=== PATIENT | male | born 1955 | race Caucasian/White ===

== ENCOUNTER 2019-03-31 06:15 | Outpatient (CLI) | payer OTHER ==
[~2019-03-31] VITALS: Ht 180.3 cm; Wt 111.4 kg
--- NOTE | ~2019-03-31 | HEMODYNAMI ---
PATIENT:KEVIN VELAZQUEZ MEDICAL RECORD: [id number] : 55 LOCATION:[facility] ADMISSION DATE: 03/31/19 Generatedon:03/31/20199:04 Patient name: KEVIN VELAZQUEZ Patient #: [id number] SSN: D OB: 1955 Date of study: 03/31/2019 Page: Of Hemodynamic Procedure Report Patient Data Patient Demographics Procedure consent was obtained First Name: KEVIN Gender: Male Last Name: MARCUS : 1955 Patient #: [id number] Age: 64 year(s) Race: Unknown Additional ID: [id number] Contact details [address]: [address] [place] [address] State: [place] City: [place] Zip code: [address] Past Medical History Allergies: No known allergies Admission Admission Data Admission Date: 03/31/2019 Admission Time: 6:15 Lab Results Lab Result Date: 03/31/2019 Lab Result Time: 0:00 Biochemistry Name Units Result Min Max BUN mg/dl 19 --(----)*- 7 18 Creatinine mg/dl 1.3 --(---*)-- 0.6 1.3 CBC Name Units Result Min Max Hemoglobin g/dl 15.6 --(--*-)-- 13.5 17.5 Procedure Procedure Types Cath Procedure Diagnostic Procedure [facility] w/Coron[facility] Procedure Description Procedure Date Procedure Date: 03/31/2019 Procedure Start Time: 8:44 Procedure End Time: 9:03 Procedure Staff Name Function Quinton Rodriguez MD Performing Physician Roma Royal RT Scrub Abby Chilel RN Nurse Toñito Cuadra RT Monitor Procedure Data Cath Procedure Fluoroscopy Diagnostic fluoroscopy Total fluoroscopy Time: 5 time: 5 min min Diagnostic fluoroscopy Total fluoroscopy dose: dose: 1416 mGy 1416 mGy Contrast Material Contrast Material Type Amount (ml) Isovue 300 63 Entry Location Entry Primary Successful Side Size Upsize Upsize Entry Closure Neves ccessful Closure Location (Fr) 1 (Fr) 2 (Fr) Remarks Device Remarks Radial Right 6 Fr Mechanical artery Short Compression Estimated blood loss: 10 ml Diagnostic catheters Device Type Used For End Catheter Placement DIAGNOSTIC Mane 110cm Procedure 5Fr catheter ([id number]) DIAGNOSTIC AR2 MOD 5 Fr Procedure catheter ([id number]) DIAGNOSTIC AL1 5Fr Procedure catheter ([id number]) Procedure Medications Medication Administration Route Dosage 0.9% NaCl I.V. 100 ml/hr Oxygen etCO2 Nasal cannula 2 l/min Lidocaine 2% added to field 20 Heparin Flush Bag added to field 2 bags (1000units/500ml NS) Radial Cocktail added to field 1 syringe (Verapamil 2mg/Nitro 400mcg/Heparin 1500units) Versed I.V. 2 mg Fentanyl I.V. 50 mcg Versed I.V. 1 mg Fentanyl I.V. 50 mcg Hemodynamics Rest HGB: 15.6 (g/dl) Heart Rate: 62 (bpm) Pressure Samples Time Site Value (mmHg) Purpose Heart Use Rate(bpm) 8:47 LV 94/-2,5 Snapshot 89 8:47 LV 90/13,15 EDP 78 8:48 AO 97/60(75) Snapshot 76 Gradients Valve Time Site Site Mean SEP/DFP Peak To Heart Use 1 2 (mmHg) (sec/min) Peak Rate (mmHg) (bpm) Aortic 8:48 LV AO 81 Snapshots Pre Cath Intra NCS Post Cath Vital Signs Time Heart Resp SPO2 etCO2 NIBP (mmHg) Rhythm Pain Sedation Rate (ipm) (%) (mmHg) Status Level (bpm) 8:23:37 64 14 98 34 149/85(112) NSR 0 (11) 10(A) , No pain 8:28:02 61 14 98 33.5 152/79(115) NSR 0 (11) 10(A) , No pain 8:32:20 66 15 97 40.2 130/82(96) NSR 0 (11) 10(A) , No pain 8:36:36 64 19 98 37.2 129/83(100) NSR 0 (11) 10(A) , No pain 8:40:54 62 15 97 39.5 135/75(108) NSR 0 (11) 10(A) , No pain 8:45:14 63 14 97 41 143/74(98) NSR 0 (11) 10(A) , No pain 8:49:34 71 12 93 26.1 116/67(92) NSR 0 (11) 9(A) , No pain 8:53:50 71 14 96 31.4 119/66(89) NSR 0 (11) 9(A) , No pain 8:58:06 70 18 96 39.5 118/75(91) NSR 0 (11) 10(A) , No pain 9:02:22 67 18 96 34.3 130/72(113) NSR 0 (11) 10(A) , No pain Medications Time Medication Route Dose Verified Delivered Reason Notes Ef fectiveness by by 8:23:37 0.9% NaCl I.V. 100 Quinton Abby used for ml/hr Michael Chilel college athletic director 8:23:43 Oxygen etCO2 2 l/min Quinton Abby used for Nasal Michael Chilel procedure cannula RN 8:23:47 Lidocaine 2% added 20ml Quinton Quinton for local to vial Michael Rodriguez MD anesthetic field 8:23:51 Heparin Flush added 2 bags Quinton Quinton used for Bag to Michael Rodriguez MD procedure (1000units/500ml field NS) 8:23:59 Radial Cocktail added 1 Quinton Quinton used for (Verapamil to syringe Michael Rodriguez MD procedure 2mg/Nitro field 400mcg/Heparin 1500units) 8:39:04 Versed I.V. 2 mg Quinton Abby for Michael Chilel sedation RN 8:39:14 Fentanyl I.V. 50 mcg Quinton Abby for Michael Chilel sedation RN 8:46:09 Versed I.V. 1 mg Quinton Abby for Michael Chilel sedation RN 8:46:14 Fentanyl I.V. 50 mcg Quinton Abby for Michael Chilel sedation dispute coordinator Log Time Note 7:44:47 Diagnostic Cath Status : Elective 7:45:11 Abby Chilel RN sent for patient. Start room use. 7:45:12 Time tracking: Regular hours (M-F 7:00 - 5:00) 7:45:16 Plan of Care:Hemodynamics will remain stable., Cardiac rhythm will remain stable., Comfort level will be maintained., Respiratory function will remain adequate., Patient/ family verbilizes understanding of procedure., Procedure tolerated without complication., Recovers from procedure without complications.. 8:16:19 Patient received from Pre/Post Procedure Room to CCL 2 Alert and oriented. Tansferred to table in Supine position. 8:16:21 Warm blankets applied, and jennie hugger turned on for patient comfort. 8:16:22 Correct patient and procedure confirmed by team. 8:16:25 Signed procedure consent form obtained from patient. 8:16:26 ECG and BP/O2 sat monitors applied to patient. 8:21:36 Baseline sample Acquired. 8:21:52 Rhythm: sinus rhythm 8:22:09 Vital chart was started 8:22:14 Full Disclosure recording started 8:22:54 H&P Date Dictated: 03/09/2019 Within 30 days and on chart., H&P Addendum completed by physician on day of procedure. (MUST COMPLETE FOR ALL OUTPATIENTS). 8:22:57 Pre-procedure instructions explained to patient. 8:22:57 Pre-op teaching completed and patient verbalized understanding. 8:23:00 Family in patients room. 8:23:03 Patient NPO since Midnight. 8:23:11 Is the patient allergic to Iodine/contrast media? No. 8:23:27 Patient allergic to No known allergies 8:23:37 0.9% NaCl 100 ml/hr I.V. was administered by Abby Chilel RN; used for procedure; 8:23:38 Is patient on blood thinner?No 8:23:41 Patient diabetic? Yes. 8:23:43 Oxygen 2 l/min etCO2 Nasal cannula was administered by Abby Chilel RN; used for procedure; 8:23:43 If diabetic: On Metformin? Yes 8:23:47 Lidocaine 2% 20ml vial added to field was administered by Quinton Rodriguez MD; for local anesthetic; 8:23:50 If on Metformin: Last Dose? 03/29/2019 8:23:51 Heparin Flush Bag (1000units/500ml NS) 2 bags added to field was administered by Quinton Rodriguez MD; used for procedure; 8:23:59 Radial Cocktail (Verapamil 2mg/Nitro 400mcg/Heparin 1500units) 1 syringe added to field was administered by Quinton Rodriguez MD; used for procedure; 8:23:59 ----Pre-sedation anethsthesia assessment.---- 8:24:03 Previous problem with sedation/anesthesia? No ? 8:24:05 Snore? Yes 8:24:07 Sleep apnea? No 8:24:09 Deviated septum? No 8:24:11 Opens mouth fully? Yes 8:24:13 Sticks out tongue? Yes 8:24:16 Airway obstruction? No ? 8:24:42 Pre procedure: right posterior tibial pulse 2+ Normal; easily identifiable; not easily obliterated 8:24:49 Modified Leobardo's test Ulnar < 7 seconds 8:24:54 Patient pain scale 0/10 ?. 8:25:16 IV patent on arrival in right forearm with 0.9% NaCl at 100ml/hr. 8:28:35 Lab Result : BUN 19 mg/dl 8::35 Lab Result : Hemoglobin 15.6 g/dl 8::35 Lab Result : Creatinine 1.3 mg/dl 8:28:39 Lab results completed and on chart. 8:28:43 Right Radial & Right Groin area was prepped with chlora-prep and draped in sterile fashion 8:28:45 Alarms reviewed by R. N. 8:28:46 Sharps counted by scrub and verified by R.N. 8:28:50 Use device set Radial Dx or PCI 8:28:52 ACIST Syringe (42499) opened to sterile field. 8:28:52 Medline Cath Pack ([id number]) opened to sterile field. 8:28:53 Bag Decanter (2002S) opened to sterile field. 8:28:54 DIAGNOSTIC WIRE .035 260cm J wire (799137) opened to sterile field. 8:28:55 ACIST Hand Control (79493) opened to sterile field. 8:28:55 ACIST Manifold (06229) opened to sterile field. 8:28:56 Tegaderm 4 x 4 (1626W) opened to sterile field. 8:28:56 MBrace Wrist Support ([id number]) opened to sterile field. 8:28:59 NEEDLE Cook 21G 4cm Radial (Y45740) opened to sterile field. 8:29:01 SHEATH 6FR Slender (70-8596) opened to sterile field. 8:38:16 Physician arrived 8:38:16 --------ALL STOP TIME OUT------ 8:38:17 Final Timeout: patient, procedure, and site verified with staff and physician. All members of the team are in agreement. 8:38:19 Right Radial & Right Groin site verified by team. 8:38:24 Maximum allowable Isovue 300 dose 300ml. Physician notified. (300ml for normal creatinines. For patients with creatinine of 1.7 or higher multiply weight(kg) x 5 divided by creatinine.) 8:38:29 Fire Safety Assessment: A--An alcohol-based skin anteseptic being used preoperatively., C--Open oxygen or nitrous oxide is being used., D--An ESU, laser, or fiber-optic light is being used. 8:38:33 Physical assessment completed. ASA score P 2 - A patient with mild systemic disease as per Quinton Rodriguez MD. 8:38:38 Sedation plan: IV Moderate Sedation Medication:Versed, Fentanyl 8:39:04 Versed 2 mg I.V. was administered by Abby Chilel RN; for sedation; 8:39:14 Fentanyl 50 mcg I.V. was administered by Abby Chilel RN; for sedation; 8:43:55 Procedure started. 8:44:00 Local anesthetic to right radial artery with Lidocaine 2% by Quinton Rodriguez MD.INITIAL ACCESS ONLY 8:45:11 A 6 Fr Short sheath was inserted into the Right Radial artery 8:46:00 A DIAGNOSTIC Mane 110cm 5Fr catheter ([id number]) was advanced over the wire and used for Procedure. 8:46:09 Versed 1 mg I.V. was administered by Abby Chilel RN; for sedation; 8:46:14 Fentanyl 50 mcg I.V. was administered by Abby Chilel RN; for sedation; 8:47:39 LV hemodynamics recorded. 8:47:41 LV gram done using FISHER 8:47:46 EF : 60 % 8:48:38 LCA angiography performed. 8:51:19 RCA angiography performed. 8:51:38 RCA OCCLUDED AT THE OSTIUM 8:52:43 Catheter removed. 8:53:07 A DIAGNOSTIC AR2 MOD 5 Fr catheter ([id number]) was advanced over the wire and used for Procedure. 8:54:56 Catheter removed. 8:56:05 A DIAGNOSTIC AL1 5Fr catheter (180123P) was advanced over the wire and used for Procedure. 8:58:08 Catheter removed. 8:58:16 TR BAND Large ([id number]) opened to sterile field. 8:58:50 Procedure ended.(Physican Out) 8:59:04 Sheath removed intact; hemostasis achieved with Mechanical Compression to the Right Radial artery. 8:59:18 Fluoroscopy time 05.00 minutes. 8:59:31 Fluoroscopy dose: 1416 mGy 8:59:31 Flurop Dose total: 1416 9:00:15 Contrast amount:Isovue 300 63ml. 9:00:31 Sharps counted by scrub and verified by R.N. 9:01:45 TR band inflated with 10cc of air. 9:01:47 Insertion/operative site no bleeding no hematoma. 9:01:57 Post right radial artery:stable 9:02:38 Post Procedure Pulses reassessed and unchanged 9:02:43 Post-procedure physical assessment completed. ASA score P 2 - A patient with mild systemic disease as per Quinton Rodriguez MD. 9:02:46 Post procedure rhythm: sinus rhythm 9:02:50 Estimated blood loss: 10 ml 9:02:53 Patient needs reinforcement of post procedure teaching. 9:03:04 Procedure and supply charges have been captured, reviewed, submitted and are correct. 9:03:24 Vital chart was stopped 9:03:24 See physician's report for complete and final results. 9:03:27 Report given to Pre/Post Procedure Room. 9:03:30 Patient transfered to Pre/Post Procedure Room with Stretcher. 9:03:33 Procedure ended. 9:03:33 Full Disclosure recording stopped 9:03:37 End room use (Document Last) Device Usage Item Name Manufacture Quantity Catalog Hospital Part Current Minimal Lot# / Number Charge Number Stock Stock Serial# Code ACIST Acist 1 54013 845478 458895 212194 20 Syringe Medical (06023) Systems Inc Medline Medline 1 [id number] 511183 99938 702992 5 Cath Pack ([id number]) Bag Microtek 1 844963 92676 284847 5 Decanter Medical Inc. () DIAGNOSTIC St Raffi 1 779081 682249 534972 435308 30 WIRE .035 260cm J wire (476356) ACIST Hand Acist 1 22474 139363 011106 046031 5 Control Medical (97138) Systems Inc ACIST Acist 1 68330 963494 350794 608660 5 [facility] Medical (85334) Systems Inc Tegaderm 4 3M 1 1626W 196126 698042 600849 5 x 4 (1626W) MBrace Advanced 1 140-0250-00 621243 04872 382212 5 Wrist Vascular Support Dynamics ([id number]) NEEDLE Agilvax Medical 1 G79810 877516 796708 890196 5 21G 4cm Radial (V13369) SHEATH 6FR Terumo 1 [id number] 323216 216436 448443 5 Slender (801060) DIAGNOSTIC Terumo 1 40-8433 735496 776149 146428 5 Mane 110cm 5Fr catheter (525007) DIAGNOSTIC Cardinal 1 [id number] 401234 442101 398516 20 AR2 MOD 5 Health Fr catheter (629085N) DIAGNOSTIC Cardinal 1 [id number] 029136 783884 200104 15 AL1 5Fr Health catheter (583772T) TR BAND Terumo 1 [id number] 692274 810007 376892 40 Large ([id number]) Signature Audit Lanse Stage Time Signature Unsigned Intra-Procedure 03/31/2019 Toñito Cuadra 9:03:53 AM RT(R) (CV) Signatures Monitor : Toñito Cuadra RT Signature : Date : Time : [address] [place] [address]
[2019-03-31] MEDS ORDERED: LISINOPRIL20 MG PO (06:38)
[2019-03-31] MEDS ORDERED: ISOSORBIDE MONO30 M1 PO (06:38)
[2019-03-31] MEDS ORDERED: LEVOTHYROXINE150 MCG PO (06:38)
[2019-03-31] MEDS ORDERED: GLUCOPHAGE500 MG PO (06:39)
[2019-03-31 06:55] VITALS: BP 142/72; Ht 180.3 cm; Wt 111.4 kg
[2019-03-31 07:17] LABS: BASOPHILS 0.6 % (0-2); EOSINOPHILS 3.9 % (0-7); HEMATOCRIT 44.7 % (42.0-54.0); HEMOGLOBIN 15.6 g/dL (13.5-17.5); IMMATURE GRANULOCYTES 0.5 % (0-5); LYMPHOCYTES 27.8 % (15-50); MCHC 34.9 g/dL (31.0-37.0); MCV 88.9 fL (80.0-100.0); MEAN PLATELET VOLUME 11.6 fL (7.4-10.4); MONOCYTES 10.3 % (2-11); NEUTROPHILS 56.9 % (40-80); PLATELET COUNT 116 10x3/uL (130-400); RBC 5.03 10x6/uL (4.20-6.10); RDW 13.5 % (11.5-14.5); WBC 6.2 10x3/uL (4.8-10.8)
[2019-03-31 07:20] LABS: ANION GAP 12.7 mmol/L (8-16); CALCIUM 9.3 mg/dL (8.5-10.1); CARBON DIOXIDE 25.3 mmol/L (21.0-32.0); CREATININE - SERUM 1.3 mg/dL (0.6-1.3)
--- NOTE | 2019-03-31 09:10 | NUR ---
PT RECEIVED VIA STRETCHER FROM REVOLVING FI[employer] ASSEMBLER FOR RECOVERY. PT SLEEPING BUT VERBALLY AROUSABLE. TR BAND AND IMMOBILIZER IN PLACE, DRESSING CDI NO BLEEDING OR SWELLING NOTED. HR NSR RATE 62, BP 156/69, O2 SAT 97 ON 2L/NC. IV INFUSING VIA ORDERS. DR SANCHEZ AT BEDSIDE TALKING WITH S/O REGARDING PLAN OF CARE AND PROCEDURE RESULTS. PT INSTRUCTED TO KEEP R ARM STILL AND NO PULLING OR PUSHING WITH IT, HE VERBALIZED UNDERSTANDING.
--- NOTE | 2019-03-31 09:32 | NUR ---
PT MORE AWAKE, DENIES PAIN OR DISCOMFORT. TR BAND IN PLACE, DRESSING REMAINS CDI NO BLEEDING OR SWELLING NOTED. HOB ELEVATED PER REQUEST, WATER GIVEN. VSS. CALL LIGHT IN REACH.
--- NOTE | 2019-03-31 09:45 | NUR ---
PT RESTING COMFORTABLY, TR BAND IN PLACE, NO BLEEDING OR SWELLING NOTED. EXTREMITY WARM AND PINK, CAP REFILL BRISK. SANDWICH SERVED. VSS, PT DENIES ANY OTHER NEEDS. CALL LIGHT IN REACH, S/O AT BEDSIDE.
--- NOTE | 2019-03-31 10:30 | NUR ---
DR. HAMILTON'S NURSE AT BEDSIDE TALKING W PT REGARDING SCHEDULING FOR FOLLOW UP APPOINTMENT FOR POTENTIAL CABG.
--- NOTE | 2019-03-31 10:40 | NUR ---
4 ADD'L CC AIR REMOVED FROM TR BAND. NO BLEEDING OR HEMATOMA NOTED, CAP REFILL REMAINS BRISK. VSS. PT DENIES DISCOMFORT OR NEEDS AT THIS TIME
--- NOTE | 2019-03-31 10:56 | NUR ---
DISCHARGE INSTRUCTIONS REVIEWED W PT AND S/O BOTH VERBALIZED UNDERSTANDING. IV REMOVED W CATH INTACT, MONITORS REMOVED. PT UP TO DRESS FOR DISCHARGE.
--- NOTE | 2019-03-31 11:04 | NUR ---
TR BAND AND REMAINING AIR REMOVED, NO BLEEDING OR SWELLING NOTED. 2X2 AND TEGADERM DRESSING APPLIED. IMMOBILIZER REMAINS ON. PT WAITING ON DR. HAMILTON TO SEE HIM BEFORE DISCHARGE.
--- NOTE | 2019-03-31 11:20 | NUR ---
DR HAMILTON AT BEDSIDE DISCUSSING PLAN OF CARE. PT DISCHARGED FROM US BUT WAITING ON PRE ASSESSMENT TESTS TO BE DONE IN PREPARATION FOR CABG SCHEDULED 04/04/19.
== END 2019-03-31 11:20 | disposition other institution, planned readmission (95) ==
LOC: D.CATH 06:15
PROVIDERS: ATTEND Internal Medicine Cardiovascular Disease
DX: I25.110 Atherosclerotic heart disease of native coronary artery with unstable angina pectoris (principal); Z01.812 Encounter for preprocedural laboratory examination

== ENCOUNTER 2019-03-31 12:37 | Inpatient (IN) | payer OTHER ==
[~2019-03-31 12:37] MED LIST: GLUCOPHAGE500 MG PO; ISOSORBIDE MONO30 M1 PO; LEVOTHYROXINE150 MCG PO; LISINOPRIL20 MG PO
[2019-03-31 17:22] LABS: BASOPHILS 0.5 % (0-2); HEMATOCRIT 43.4 % (42.0-54.0); HEMOGLOBIN 14.9 g/dL (13.5-17.5); IMMATURE GRANULOCYTES 0.3 % (0-5); LYMPHOCYTES 26.8 % (15-50); MCH 30.9 pg (26.0-34.0); MCHC 34.3 g/dL (31.0-37.0); MEAN PLATELET VOLUME 11.3 fL (7.4-10.4); MONOCYTES 9.9 % (2-11); NEUTROPHILS 58.5 % (40-80); PLATELET COUNT 109 10x3/uL (130-400); RBC 4.82 10x6/uL (4.20-6.10); RDW 13.4 % (11.5-14.5); WBC 5.8 10x3/uL (4.8-10.8)
[2019-03-31 17:45] LABS: APTT 27.5 SECONDS (22.8-39.4); INR 1.08 (0.85-1.17); PROTIME 13.5 SECONDS (11.6-15.0)
[2019-03-31 17:52] LABS: APPEARANCE CLEAR (CLEAR); COLOR YELLOW (YELLOW); SPECIFIC GRAVITY 1.015 (1.005-1.020)
[2019-03-31 17:53] LABS: BILIRUBIN NEGATIVE (NEGATIVE); GLUCOSE NEGATIVE (NEGATIVE); KETONE NEGATIVE (NEGATIVE); NITRITE NEGATIVE (NEGATIVE); PROTEIN NEGATIVE (NEGATIVE); UROBILINOGEN NORMAL (NORMAL)
[2019-03-31 17:54] LABS: ALBUMIN 3.5 g/dL (3.4-5.0); ANION GAP 12.7 mmol/L (8-16); BILIRUBIN - TOTAL 0.45 mg/dL (0.2-1.3); CALCIUM 8.6 mg/dL (8.5-10.1); CARBON DIOXIDE 26.2 mmol/L (21.0-32.0); CREATININE - SERUM 1.2 mg/dL (0.6-1.3); PHOSPHOROUS 3.7 mg/dL (2.5-4.9); POTASSIUM - SERUM 3.9 mmol/L (3.5-5.1); PROTEIN - SERUM 7.1 g/dL (6.4-8.2); T4 THYROXIN - FREE 1.18 ng/dL (0.76-1.46); THYROID STIMULATING HORMONE 0.44 uIU/mL (0.36-3.74); URIC ACID 9.1 mg/dL (2.6-7.2)
[2019-04-04] VITALS (36 sets, daily range): BP systolic 91–136; BP diastolic 51–69; BMI 33.2; BMI 34.2
[2019-04-04] MEDS ORDERED: BAYER CHEWABLE81 MG PO (05:53)
[2019-04-04] MEDS ORDERED: ACETAMINOPHEN500 M1 PO (05:54)
--- NOTE | 2019-04-04 16:00 | NUR ---
PT ARRIVED TO UNIT AROUND 1538. PLACE ON VENT A/C, TV650, FIO2 60%, PEEP 5. ETT SIZE 8 24 AT THE LIP. MIDSTERNAL DRESSING NOTED. SUBTERNAL CT X 2 TO 20CM SUCTION, NOT AIR LEAK NOTED. L CHARITY DRAIN NOTED. DRESSING NOTED ON LEFT ARM. RLE HARVEST SITES WITH COBAN DRESSSING IN PLACE FROM GROIN TO ANKLE. CRITICORE RINALDI CATHETER IN PLACE WITH CLEAR YELLOW URINE NOTED. WRIST RESTRAINTS APPLIED UPON ARRIVAL PER ORDERS. R-RADIAL ELIDA IN PLACE SECURED WITH WRIST PROTECTOR. PT OPENS EYES TO VOICE. COMPLETE ASSESSMENT CHARTED IN FLOWSHEET. SAFETY MEASURES IN PLACE. WILL CONTINUE TO MONITOR.
--- NOTE | 2019-04-04 19:05 | NUR ---
ABG'S REPORTED TO DR. HAMILTON. ORDERED TO GIVE 1 AMP OF BICARB. WANTS TO REPEAT ABG'S IN 30MIN BEFORE EXTUBATING.
--- NOTE | 2019-04-04 19:54 | NUR ---
ABG'S REPORTED TO , ORDERS RECEIVED TO EXTUBATE, RT AT BEDSIDE, VSS, WILL CONTINUE TO MONITOR
--- NOTE | 2019-04-04 19:55 | NUR ---
PT EXTUBATED BY RT ORALIA, PT VSS, NO ACUTE DISTRESS NOTED CALM/COOPERATIVE AT THIS TIME, PLACED ON NC @4L/MIN
--- NOTE | 2019-04-04 20:15 | NUR ---
SPOUSE AT BEDSIDE, UPDATE GIVEN, PT VSS, PT C/O PAIN MED GIVEN PER MAR/ORDERS, WILL CONTINUE TO MONITOR
--- NOTE | 2019-04-04 21:30 | NUR ---
PT C/O INCISIONAL PAIN AT REST AND WITH COUGHING, PRN MED GIVEN SEE DEC, VSS
--- NOTE | 2019-04-04 23:00 | NUR ---
REASSESSMENT COMPLETE PER FLOW SHEET, NO ACUTE CHANGES NOTED, PT AAOx4, VSS. REPOSITIONED IN BED
[2019-04-05] VITALS (37 sets, daily range): BP systolic 104–138; BP diastolic 56–81; BMI 35.2
--- NOTE | 2019-04-05 01:30 | NUR ---
DANGLED PT ON BEDSIDE, PT TOLLERATED REPOSITIONING WELL, MINIMAL CT OUTPUT, VSS, REPOSITIONED FOR COMFORT IN BED, CUP H2O GIVEN PER REQUEST, WILL CONTINUE TO MONITOR
--- NOTE | 2019-04-05 03:00 | NUR ---
REASSESSMENT COMPLETE SEE FLOW SHEET, VSS, CUP H2O PER REQUEST
[2019-04-05 06:06] LABS: HEMATOCRIT 40.6 % (42.0-54.0); HEMOGLOBIN 13.9 g/dL (13.5-17.5); MCH 30.7 pg (26.0-34.0); MCHC 34.2 g/dL (31.0-37.0); MCV 89.6 fL (80.0-100.0); MEAN PLATELET VOLUME 11.1 fL (7.4-10.4); RBC 4.53 10x6/uL (4.20-6.10); RDW 13.9 % (11.5-14.5); WBC 15.2 10x3/uL (4.8-10.8)
[2019-04-05 06:28] LABS: ANION GAP 13.3 mmol/L (8-16); BILIRUBIN - TOTAL 0.54 mg/dL (0.2-1.3); CALCIUM 7.4 mg/dL (8.5-10.1); CARBON DIOXIDE 25.3 mmol/L (21.0-32.0); CREATININE - SERUM 1.6 mg/dL (0.6-1.3); POTASSIUM - SERUM 4.6 mmol/L (3.5-5.1); PROTEIN - SERUM 5.7 g/dL (6.4-8.2)
--- NOTE | 2019-04-05 06:30 | NUR ---
PT UP TO CHAIR, PT HAS INCRTEASED GENERALIZED/INCISIONAL PAIN, PAIN MED GIVEN SEE MAR, VSS WILL CONTINUE TO MONITOR
--- NOTE | 2019-04-05 07:55 | NUR ---
DR HAMILTON BY TO SEE PATIENT. PT C/O PAIN, DR HAMILTON ACKNOWLEDGE COMPLAINT AND DISCUSSED WITH PT THIS TYPE OF SURGERY WOULD CAUSE PAIN. HAVE MEDICATIONS TO HELP, WILL ALSO BE REMOVING CHEST TUBES LATER TODAY AND THAT SHOULD HELP ALEVIATE SOME OF THE PAIN. PT VOICED NO OTHER COMPLAINTS.
--- NOTE | 2019-04-05 08:02 | OP ---
PATIENT NAME: KEVIN VELAZQUEZ MEDICAL RECORD: [id number] :55 LOCATION:D.CVI D.CV06 ADMISSION DATE:04/04/19 SURGEON: HOOD HAMILTON MD DATE OF OPERATION: 04/04/2019 SURGEON: Hood Hamilton MD FINANCIAL DEALERS: Aftab Oconnor OPERATION PERFORMED: Coronary artery bypass graft times 4 (left internal mammary LAD, radial artery from aorta to obtuse marginal, reverse saphenous vein graft from aorta to first diagonal, aorta to posterior descending artery) left radial artery harvest. Endoscopic saphenous vein harvest. PREOPERATIVE DIAGNOSES: Coronary artery disease with percutaneous coronary intervention. POSTOPERATIVE DIAGNOSES: Coronary artery disease with percutaneous coronary intervention. ANESTHESIA: General endotracheal anesthesia. ESTIMATED BLOOD LOSS: Total cardiopulmonary bypass with Cell Saver retransfusion. COMPLICATIONS: None. SPECIMENS: None. CONDITION: Stable. DISPOSITION: CV ICU. OPERATIVE FINDINGS: 1. Transesophageal echocardiography revealed 60% ejection fraction with trace mitral regurgitation, no change after separation from cardiopulmonary bypass. 2. Good quality left radial artery harvested in open fashion after Leobardo test performed on the left. 3. Good quality greater saphenous vein harvested endoscopically right lower extremity. 4. Large fatty heart. 5. Good quality left internal mammary artery to the LAD and all vessels had severe disease. There was anastomosis at the softest area of the LAD 1.5 mm. 6. The obtuse marginal was a bifurcating 1.5 mm vessel with severe disease. 7. First diagonal was intramyocardial 2.0 mm vessel. 8. Posterior descending artery 1.5 mm severe disease. 9. Sternal plate closure due to obesity, diabetes, and physical labor. PROCEDURE INDICATION: Crescendo unstable angina symptoms and multivessel coronary disease with previous coronary stenting. PROCEDURE IN DETAIL: The patient was brought to the operative suite. General anesthesia was obtained, the patient was prepped and draped, the greater saphenous vein harvested endoscopically. The right lower extremity by electrocautery. Vessels ligated proximally and distally removed. Side branches OPERATIVE REPORT [id number] KEVIN VELAZQUEZ were tied and sites were oversewn. Later, the leg was closed in 2 layers. Simultaneously, left radial artery was harvested with an open incision from the mid forearm to the wrist. Side branches were divided with clips. Vessel ligated proximally and distally and removed. It was cannulated perfused with papaverine solution. The arm was made hemostatic and closed in 2 layers. It was wrapped after Dermabond was placed and later wrapped again. Median sternotomy incision was made. Subcutaneous tissue was divided by electrocautery. The sternum was divided with a saw. The left hemisternum was elevated. Left pleural cavity was entered. Left internal mammary was taken as a pedicle graft. Sternal retractor was placed. Pericardium was opened. Heparin was given. Aortic was cannulated. Dual stage venous cannula was inserted. Internal mammary clipped distally and made ready for anastomosis. Activated clotting time was appropriately elevated. The patient was cardiopulmonary bypass. Sites for distal anastomoses were selected. Retrograde cardioplegia cannula was inserted. Antegrade cardioplegic cannula was inserted. The patient was cooled. Crossclamp was placed. Cardioplegia given antegrade and retrograde and antegrade cardioplegia was repeated at 15-minute intervals including down the completed vein grafts. Distal anastomoses were performed in standard technique and proximal anastomoses with single cross-clamp technique. The patient fully rewarmed cross clamp removed. Proximal and distal anastomotic sites were inspected for bleeding, resumed spontaneous rhythm, weaned from cardiopulmonary bypass and decannulated. Aortic annulus was oversewn with a non-pledgeted Prolene suture. Protamine was given. Thorough irrigation was undertaken. Hemostasis was ensured. The graft lay appropriately. Drains were placed in the mediastinum and left pleural cavity. Ventricular pacing wires were placed. Pericardial fat was loosely reapproximated. Left chest was evacuated and irrigated. The internal mammary harvest site was inspected for bleeding. Sternum was closed with 3 wires and then a Beverley sternal plating system with 1 plate in the manubrium and 2 in the body of the sternum. The area was irrigated with antibiotic irrigation. The fascia was closed. Subcutaneous tissue was closed. Skin was closed. Dermabond was placed. The needle and sponge count reported to be correct. The patient was taken to ICU in stable condition. TRANSINT:[id number] Voice Confirmation ID: [id number] DOCUMENT ID: [id number] HOOD HAMILTON MD at 0802 CC: MIKE SANCHEZ M.D. and JAKUB PALACIOS MD [id number] DICTATION DATE: 04/04/19 160 METER READING CLERK: 04/04/192014 ADM IN [facility] [address] [place] [address]
--- NOTE | 2019-04-05 09:31 | NUR ---
PT RESTING QUIETLY IN CHAIR AT BEDSIDE. NO DISTRESS NOTED. VSS. CALL LIGHT IN REACH.
--- NOTE | 2019-04-05 13:17 | NUR ---
1300 RECEIVED PT UP IN CHAIR. DENIES ANY NEEDS.
--- NOTE | 2019-04-05 15:07 | NUR ---
1430 DR HAMILTON IN ROOM D/C'D CHEST TUBES. SUBSTERNAL DRESSING CHANGED. ORDERS TO D/C A LINE D/C'D PER PROTOCOL, TIP INTACT. PER DR HAMILTON, DRESSING REMOVED FROM LUE AND RLE. 1500 VERBAL ORDER FOR 2.5 IV LOPRESSOR.
--- NOTE | 2019-04-05 17:17 | NUR ---
NOTIFIED DR HAMILTON OF PRN NORCO BEING UNAFFECTIVE. ORDERS FOR PRN PERCOCET AND ONE TIME DOSE OF TORODOL.
--- NOTE | 2019-04-05 18:26 | NUR ---
REFUSED BATH THIS SHIFT, STATED HE HAD ONE THIS AM.
--- NOTE | 2019-04-05 19:36 | NUR ---
BEDSIDE SHIFT REPORT GIVEN BY DEPARTING RN. PT OOB IN CHAIR. AAOX4. PERRLA. C/O INCISIONAL PAIN. WILL GIVE PRN PAIN MED WHEN AVAILABLE. O2 SAT 94% ON 2L NC. CHARITY DRAIN NOTED. RT LEG HARVEST SITE CONSTRUCTION DIRECTOR. LEFT ARM HARVEST SITE CONSTRUCTION DIRECTOR. NO SS OF INFECTION. VSS. ASSESSMENT COMPLETE. SAFETY MEASURES IN PLACE. CBIR.
--- NOTE | 2019-04-05 20:00 | NUR ---
FAMILY AT BEDSIDE
--- NOTE | 2019-04-05 21:15 | NUR ---
HS MEDS GIVEN WITHOUT DIFFICULTY. PRN PAIN MED GIVEN. SEE MAR FOR DETAILS.
--- NOTE | 2019-04-05 22:47 | NUR ---
BACK TO BED FROM CHAIR. STANDBY ASSIST. TOLERATED WELL. PRN PAIN MED EFFECTIVE.
[2019-04-06] VITALS (23 sets, daily range): BP systolic 98–125; BP diastolic 50–81
--- NOTE | 2019-04-06 02:54 | NUR ---
REASSESSMENT COMPLETE. NO NEW CHANGES NOTED IN PT CONDITION. VSS. DENIES ANY NEEDS AT THIS TIME. SAFETY MEASURES IN PLACE. CBIR.
[2019-04-06 06:42] LABS: HEMATOCRIT 35.8 % (42.0-54.0); HEMOGLOBIN 11.7 g/dL (13.5-17.5); MCH 29.9 pg (26.0-34.0); MCHC 32.7 g/dL (31.0-37.0); MEAN PLATELET VOLUME 11.3 fL (7.4-10.4); RBC 3.91 10x6/uL (4.20-6.10); RDW 14.1 % (11.5-14.5); WBC 15.1 10x3/uL (4.8-10.8)
[2019-04-06 06:46] LABS: ALBUMIN 2.7 g/dL (3.4-5.0); ANION GAP 9.2 mmol/L (8-16); BILIRUBIN - TOTAL 1.05 mg/dL (0.2-1.3); CALCIUM 7.7 mg/dL (8.5-10.1); CARBON DIOXIDE 29.1 mmol/L (21.0-32.0); CREATININE - SERUM 1.6 mg/dL (0.6-1.3); POTASSIUM - SERUM 4.3 mmol/L (3.5-5.1); PROTEIN - SERUM 5.8 g/dL (6.4-8.2)
[2019-04-06 06:48] LABS: MCV 91.6 fL (80.0-100.0)
--- NOTE | 2019-04-06 07:59 | NUR ---
0700 RECEIVED IN CHAIR. R IJ CENTRAL LINE CDI. MIDTSTERNAL DRESSING IN PLACE. SUBSTERNAL DRESSING WNL AND CHARITY DRAIN COMPRESSED. LUE AND RLE HARVEST SITE INCISION WNL. O2 2L VIA NC. RINALDI DRAINING YELLOW URINE.
--- NOTE | 2019-04-06 10:00 | TEE ---
PATIENT:KEVIN VELAZQUEZ MEDICAL RECORD: [id number] LOCATION:[place] [address] AGE OF PATIENT: 64 ADMISSION DATE: 04/04/19 SEX: M REFERRING PHYSICIAN: INTERPRETING PHYSICIAN: CAROLYN SMALL MD TRANSESOPHAGEAL ECHOCARDIOGRAM Date: 04/04/19 ROBYN CHARGE Y INDICATIONS: CABG PREMEDICATIONS: PATIENT'S RESPONSE PROCEDURE DOPPLER MEASUREMENTS: LVIT LA 3.9 PA RA LVOT RVOT Asc. Ao AV Gradient Peak AV Mean AV Area MV Gradient Peak MV Mean MV Area INTERPRETATION: Doppler: 2-D: COLOR FLOW DOPPLER NORMAL SALINE STUDY: MISCELLANOUS: DIAGNOSIS: PLAN: Stock Wetter:Blanca Rodriguez Professor Of Psychology: Blanca SILVA COMMENTS: JOY PATIENT DATE OF SERVICE: 04/04/2019 PROCEDURE: Transesophageal echo evaluation of valvular structures during bypass surgery. FINDINGS: 1. Left ventricular chamber size is within normal limits. Left ventricular systolic function is normal. Overall ejection fraction estimated at 60%. 2. Left atrium, right atrium, right ventricular chamber sizes are within normal TRANSESOPHAGEAL ECHOCARDIOGRAM REPORT [id number] LUIS VELAZQUEZ limits. 3. Valvular structures have normal structure and motion. 4. Doppler interrogation only reveals [id number] mitral regurgitation. No other valvular insufficiency or stenosis. 5. No evidence of pericardial effusion or left ventricular thrombus. TRANSINT:[id number] Voice Confirmation ID: [id number] DOCUMENT ID: [id number] at 1000 CC: [id number] DICTATION DATE: 04/04/19 1627 COMPANY DOCTOR: 04/05/19 0711 ADM IN [place] [address] [place] [address]
--- NOTE | 2019-04-06 10:17 | NUR ---
0930 AMBULATED WITH THERAPY AND CVL DRESSING CHANGED
--- NOTE | 2019-04-06 15:20 | NUR ---
1200 ATE BROTH FOR LUNCH 1500 AMBULATED WITH PT
--- NOTE | 2019-04-06 16:19 | NUR ---
1600 RINALDI D/C'D, TIP INTACT. URINAL PROVIDED.
--- NOTE | 2019-04-06 16:48 | MORECARE ---
CASE MANAGEMENT DISCHARGE SUMMARY PATIENT: KEVIN VELAZQUEZ UNIT: [id number] ADM DATE: 04/04/19 AGE: 64 : 55 SEX: M ROOM/BED: D[facility] AUTHOR: DEEPTI WITT PHYSICIAN: REFERRING PHYSICIAN: NATALIE HAMILTON MD DATE OF SERVICE: 04/06/19 Discharge Plan Patient Name: KEVIN VELAZQUEZ [facility] [facility] 1955 Planned Disposition: Home Anticipated Discharge Date: Discharge Date: Expected LOS: Initial Reviewer: [email or web address] Initial Review Date: 04/06/2019 Generated: 04/06/19 5:47 pm DCPIA - Discharge Planning Initial Assessment Updated by [email or web address]: Jamilah Gotti on 04/06/19 4:47 pm * Is the patient Alert and Oriented? Yes * How many steps to enter\exit or inside your home? * PCP DR. PALACIOS * Pharmacy [facility] * Preadmission Environment Home Alone * ADLs Independent * Equipment Cane * List name and contact numbers for known caregivers / representatives who currently or will assist patient after discharge: [facility] - [phone] * Verbal permission to speak to the caregivers and representatives has been obtained from the patient. N/A * Community resources currently utilized None * Additional services required to return to the preadmission environment? No * Can the patient safely return to the preadmission environment? Yes * Has this patient been hospitalized within the prior 30 days at any hospital? No Patient Name: KEVIN VELAZQUEZ Page [id number] at 1648 All edits/amendments must be made on the electronic document DICTATION DATE: 04/06/191646 STUDIO TECHNICIAN: FLORENCE 04/06/191646 RPT#: [id number] DC DATE: STATUS: ADM IN [facility] [address] [place] [address] END OF REPORT
--- NOTE | 2019-04-06 16:59 | MORECARE ---
CASE MANAGEMENT DISCHARGE SUMMARY PATIENT: KEVIN VELAZQUEZ UNIT: [id number] ADM DATE: 04/04/19 AGE: 64 : 55 SEX: M ROOM/BED: D[facility] AUTHOR: MIRYAM,DOC PHYSICIAN: REFERRING PHYSICIAN: NATALIE HAMILTON MD DATE OF SERVICE: 04/06/19 Discharge Plan Patient Name: KEVIN VELAZQUEZ Facility: [facility]:[place] : 1955 Planned Disposition: Home Anticipated Discharge Date: Discharge Date: Expected LOS: Initial Reviewer: [email or web address] Initial Review Date: 04/06/2019 Generated: 04/06/19 5:59 pm Comments DCP- Discharge Planning Updated by [email or web address]: Jamilah Gotti on 04/06/19 3:[address] Patient Name: KEVIN VELAZQUEZ Admission Status: Urgent Accout number: [id number] Admission Date: 04-04-2019 : 1955 Admission Diagnosis: Attending: NATALIE HAMILTON Current LOS: 2 Anticipated DC Date: Planned Disposition: Home Primary Insurance: [employer] Discharge Planning Comments: CM met with patient at bedside after explaining CM role and obtaining verbal consent. Patient lives at home alone and plans to return there upon discharge. Patient feels this would be a safe discharge. Patient states that his friend Luna lives in [facility] in his yard. CM discussed availability / needs of home health and medical equipment. Patient denies any discharge needs at this time. Patient states he will have his friend drive him home upon discharge. CM will continue to follow and assist as needed with discharge planning / needs. Supervisor [employer]or Recruiters: Jamilah Gotti DCPIA - Discharge Planning Initial Assessment Updated by [email or web address]: Jamilah Gotti on 04/06/19 4:47 pm * Is the patient Alert and Oriented? Yes * How many steps to enter\exit or inside your home? * PCP DR. PALACIOS * [facility] * Preadmission Environment Home Alone * ADLs Independent * Equipment Cane * List name and contact numbers for known caregivers / representatives who currently or will assist patient after discharge: LUNA SRINIVASAN- FRIEND - [phone] * Verbal permission to speak to the caregivers and representatives has been obtained from the patient. N/A * Community resources currently utilized None * Additional services required to return to the preadmission environment? No * Can the patient safely return to the preadmission environment? Yes * Has this patient been hospitalized within the prior 30 days at any hospital? No Last DP export: 04/06/19 3:47 p Patient Name: KEVIN VELAZQUEZ Page 13717 at 1653 All edits/amendments must be made on the electronic document DICTATION DATE: 04/06/191658 MANAGER APPLICATION: FLORENCE 04/06/191658 RPT#: [id number] DC DATE: STATUS: ADM IN [facility] [address] [place] [address] END OF REPORT
--- NOTE | 2019-04-06 18:05 | NUR ---
ATE DINNER, ASSISTED BACK TO BED
--- NOTE | 2019-04-06 19:27 | NUR ---
REPORT RECEIVED, SHIFT ASSESSMENT COMPLETED PER FLOW SHEET. AAOX4. RT IJ CVL PATENT, DRESSING C/D/I. COUGH/DEEP BREATHING AND USE OF IS ENCOURAGED, PULLING 750 X10 ON IS. DENIES NEEDS. SEE FLOW SHEET FOR COMPLETE ASSESSMENT. WILL CONTINUE TO MONITOR.
--- NOTE | 2019-04-06 21:29 | NUR ---
RESTING IN BED WATCHING TV, SCHEDULED MEDS GIVEN, WATER PROVIDED. NO DIFFICULTY SWALLOWING. FSBS TREATED PER SLIDING SCALE, SEE EMAR FOR DETAILS. USE OF IS ENCOURAGED, PULLLING 750-1000 X10. DENIES NEEDS. CALL LIGHT WITHIN REACH. WILL CONTINUE TO MONITOR.
--- NOTE | 2019-04-06 23:11 | NUR ---
REASSESSMENT COMPLETE DPER FLOW SHEET, SEE FOR DETAILS. NO ACUTE CHANGES NOTED. DENIES NEEDS. CALL LIGHT WITHIN REACH. WILL CONTINUE TO MONITOR.
[2019-04-07] VITALS (24 sets, daily range): BP systolic 91–155; BP diastolic 39–82
--- NOTE | 2019-04-07 01:00 | NUR ---
RESTING COMFORTABLY, DENIES NEEDS AT THIS TIME, CALL LIGHT WITHIN REACH. WILL CONTINUE TO MONITOR.
--- NOTE | 2019-04-07 03:07 | NUR ---
REASSESSMENT COMPLETED PER FLOW SHEET, SEE FOR DETAILS. SUBSTERNAL DRESSING CHANGED, TPM WIRES INTACT. CALL LIGHT WITHIN REACH. WILL CONTINUE TO MONITOR.
--- NOTE | 2019-04-07 04:30 | NUR ---
COMPLETE BED BATH GIVEN, COMPLETE BED LINEN CHANGE PROVIDED.
--- NOTE | 2019-04-07 05:00 | NUR ---
ASSISSTED OOB TO CHAIR PER PATIENT'S REQUEST. TOLERATED WELL. CALL LIGHT WITHIN REACH. DENIES NEEDS. WILL CONTINUE TO MONITOR.
[2019-04-07 06:31] LABS: HEMATOCRIT 31.6 % (42.0-54.0); HEMOGLOBIN 10.5 g/dL (13.5-17.5); MCH 30.5 pg (26.0-34.0); MCHC 33.2 g/dL (31.0-37.0); MCV 91.9 fL (80.0-100.0); MEAN PLATELET VOLUME 10.8 fL (7.4-10.4); RBC 3.44 10x6/uL (4.20-6.10); WBC 13.1 10x3/uL (4.8-10.8)
[2019-04-07 06:48] LABS: ALBUMIN 2.6 g/dL (3.4-5.0); ANION GAP 11.6 mmol/L (8-16); BILIRUBIN - TOTAL 0.87 mg/dL (0.2-1.3); CALCIUM 8.3 mg/dL (8.5-10.1); CARBON DIOXIDE 28.3 mmol/L (21.0-32.0); CREATININE - SERUM 1.5 mg/dL (0.6-1.3); POTASSIUM - SERUM 3.9 mmol/L (3.5-5.1)
--- NOTE | 2019-04-07 07:00 | NUR ---
REPORT RECIEVED FROM THE OFF GOING RN. SEE ASSESSMENT IN THE PTS FLOW SHEET. PT SITTING IN THE BEDSIDE CHAIR. VSS. FIRST DEGREE BLOCK NOTED. LEFT FA INCISION WELL APPROXIMATED WITH NO DRAINAGE NOTED. MIDSTERNAL DRESSING C/D/I. SUBSTERNAL DRESSING C/D/I. CHARITY DRAIN NOTED COMPRESSED. SERSOUANGIOUS DRAINAGE NOTED. RLE HARVEST SITE DRESSING C/D/I. PT DENIES PAIN AT THIS TIME. PT INSTRUCTED TO USE HIS IS 10X'S/H. PT PULLS 750-1000. BREAKFAST TRAY PROVIDED FOR THE PT. CALL LIGHT IN REACH. WILL CONT POC.
--- NOTE | 2019-04-07 08:36 | NUR ---
DR HAMILTON CAME BY SAW PATIENT. INCISION OPEN TO AIR, DRAINAGE NOTED. ASKED FOR IT TO BE COVERED WITH IODINE SWAB, GAUZE. SITE WAS SWABBED WITH IODINE, COVERED WITH 4X4 AND WRAPPED LOOSELY WITH KERLIX.
--- NOTE | 2019-04-07 09:20 | NUR ---
AM MEDS GIVEN WITH NO ISSUES. PRN PERCOCET PROVIDED PER REQUEST. SEE MAR.
--- NOTE | 2019-04-07 09:35 | NUR ---
PT AMBULATED 500 FEET. PT NOTED TO HAVE A SLOW AND STEADY GAIT. VSS. WILL CONT POC.
--- NOTE | 2019-04-07 10:06 | NUR ---
Nutrition Follow Up: Pt was walking with PT at the time of RD visit. Interview deferred at this time. Per chart diet has been advanced to ADA. No BM since admit Wt stable I<O Labs reviewed Meds noted including Lasix, Reglan Rec continue current diet as tolerated. RD following.
--- NOTE | 2019-04-07 11:00 | NUR ---
REASSESSMENT COMPLETED. SEE FLOW SHEET.
--- NOTE | 2019-04-07 11:30 | NUR ---
MEAL TRAY PROVIDED FOR THE PT. WILL CONT POC.
--- NOTE | 2019-04-07 14:55 | NUR ---
REASSESSMENT COMPLETED SEE ASSESSMENT IN THE PTS FLOW SHEET. VSS AT THIS TIME. WILL CONT POC.
--- NOTE | 2019-04-07 19:00 | NUR ---
SHIFT ASSESSMENT COMPLETED PER FLOW SHEET WITH NO ACUTE DISTRESS OBSERVED. MONITORS CONNECTED TO PATIENT WITH ALARMS SET. VSS. CALL LIGHT IN REACH AND ABLE TO UTILIZE TO MAKE NEEDS KNOWN
--- NOTE | 2019-04-07 21:00 | NUR ---
AWAKE AND ALERT. VSS
--- NOTE | 2019-04-07 23:00 | NUR ---
AWAKE AND ALERT. UP IN BEDSIDE CHAIR. SHIFT REASSESSMENT COMPLETED PER FLOW SHEET WITH NO ACUTE DISTRESS OBSERVED. VSS. CALL LIGHT IN REACH
[2019-04-08] VITALS (24 sets, daily range): BP systolic 91–131; BP diastolic 37–83
--- NOTE | 2019-04-08 01:00 | NUR ---
UP IN BEDSIDE CHAIR, AWAKE AND ALERT. VSS
--- NOTE | 2019-04-08 05:00 | NUR ---
UP IN BEDSIDE CHAIR. AWAKE AND ALERT. VSS
[2019-04-08 05:59] LABS: HEMATOCRIT 29.2 % (42.0-54.0); HEMOGLOBIN 9.7 g/dL (13.5-17.5); MCH 30.3 pg (26.0-34.0); MCHC 33.2 g/dL (31.0-37.0); MCV 91.3 fL (80.0-100.0); MEAN PLATELET VOLUME 10.4 fL (7.4-10.4); RBC 3.2 10x6/uL (4.20-6.10); RDW 13.8 % (11.5-14.5); WBC 10.5 10x3/uL (4.8-10.8)
[2019-04-08 06:21] LABS: ALBUMIN 2.6 g/dL (3.4-5.0); ANION GAP 11.5 mmol/L (8-16); BILIRUBIN - TOTAL 0.72 mg/dL (0.2-1.3); CALCIUM 8.3 mg/dL (8.5-10.1); CARBON DIOXIDE 28.6 mmol/L (21.0-32.0); CREATININE - SERUM 1.4 mg/dL (0.6-1.3); POTASSIUM - SERUM 4.1 mmol/L (3.5-5.1); PROTEIN - SERUM 6.5 g/dL (6.4-8.2)
[2019-04-08] MEDS ORDERED: PLAVIX75 MG PO (08:29)
[2019-04-08] MEDS ORDERED: AMIODARONE HCL200 MG PO (08:30)
[2019-04-08] MEDS ORDERED: HEMOCYTE PLUS C1 CAP PO (08:30)
[2019-04-08] MEDS ORDERED: LISINOPRIL2.5 MG PO (08:31)
[2019-04-08] MEDS ORDERED: LOPRESSOR25 MG PO (08:32)
[2019-04-08] MEDS ORDERED: LASIX40 MG PO (08:35)
[2019-04-08] MEDS ORDERED: COLACE100 MG PO (08:36)
[2019-04-08] MEDS ORDERED: PROCARDIA10 MG PO (08:39)
[2019-04-08] MEDS ORDERED: PERCOCET 5-3251 TAB PO (08:43)
[2019-04-08] MEDS ORDERED: K-DUR20 MEQ PO (08:53)
--- NOTE | 2019-04-08 15:18 | NUR ---
1500: IV STARTED IN R WRIST WITH 20G ON 1ST ATTEMPT. 1510: R IJ DC'D. MANUAL PRESSURE HELD X 2 MIN. SITE DRESSED WITH 2X2 AND TEGADERM.
--- NOTE | 2019-04-08 21:00 | NUR ---
1900 REPORT RECEIVED CARE ASSUMED ASSESSMENT DONE SEE FLOW SHEET VSS. CONTINUE POC PULM TOILET. 2100 MEDS GIVEN PER DEC. DR VALLEJO INFORMED OF PT STATUS. INCREASE PULM TOILED VSS WILL CONTINUE TO MONITOR.
--- NOTE | 2019-04-08 23:00 | NUR ---
REASSESSMENT DONE SEE FLOW SHEET VSS. PT AMBULATED DOWN KING AND BACK NO SOB NOTED VSS WILL CONTINUE TO MONITOR.
[2019-04-09] VITALS (13 sets, daily range): BP systolic 103–130; BP diastolic 50–66
--- NOTE | 2019-04-09 02:55 | NUR ---
0100 WATER PROVIDED PER PT REQUEST. VSS. 025 REASSESSMENT DONE SEE FLOW SHEET VSS.
--- NOTE | 2019-04-09 05:00 | NUR ---
IO COLLECTED DAILY WEIGHT COLLECTED VSS WILL CONTINUE TO MONITOR.
[2019-04-09 06:17] LABS: HEMOGLOBIN 9.5 g/dL (13.5-17.5); MCHC 32.8 g/dL (31.0-37.0); MCV 91.5 fL (80.0-100.0); MEAN PLATELET VOLUME 10.2 fL (7.4-10.4); RBC 3.17 10x6/uL (4.20-6.10); RDW 13.8 % (11.5-14.5); WBC 8.5 10x3/uL (4.8-10.8)
[2019-04-09 06:45] LABS: ALBUMIN 2.4 g/dL (3.4-5.0); ANION GAP 11.4 mmol/L (8-16); BILIRUBIN - TOTAL 0.73 mg/dL (0.2-1.3); CALCIUM 8.8 mg/dL (8.5-10.1); CARBON DIOXIDE 27.4 mmol/L (21.0-32.0); CREATININE - SERUM 1.4 mg/dL (0.6-1.3); POTASSIUM - SERUM 3.8 mmol/L (3.5-5.1); PROTEIN - SERUM 6.2 g/dL (6.4-8.2)
--- NOTE | 2019-04-09 13:50 | NUR ---
CHARITY DRAIN DC'D AND R WRIST PIV DC'D.
--- NOTE | 2019-04-09 14:31 | NUR ---
1425: DISCHARGE INSTRUCTIONS REVIEWED. 1430: DISCHARGED HOME. ESCORTED TO VEHICLE VIA WHEELCHAIR.
--- NOTE | 2019-04-11 09:38 | MORECARE ---
CASE MANAGEMENT DISCHARGE SUMMARY PATIENT: KEVIN VELAZQUEZ UNIT: [id number] ADM DATE: 04/04/19 AGE: 64 : 55 SEX: M ROOM/BED: D[facility] AUTHOR: MIRYAM,DOC PHYSICIAN: REFERRING PHYSICIAN: NATALIE HAMILTON MD DATE OF SERVICE: 04/11/19 Discharge Plan Patient Name: KEVIN VELAZQUEZ Facility: [facility]:[place] : 1955 Planned Disposition: Home Anticipated Discharge Date: Discharge Date: 04/09/2019 Expected LOS: Initial Reviewer: [email or web address] Initial Review Date: 04/06/2019 Generated: 04/11/19 10:37 am DCP- Discharge Planning Updated by [email or web address]: Jamilah Gotti on 04/06/19 3:[address] Patient Name: KEVIN VELAZQUEZ Admission Status: Urgent Accout number: [id number] Admission Date: 04-04-2019 : 1955 Admission Diagnosis: Attending: NATALIE HAMILTON Current LOS: 2 Anticipated DC Date: Planned Disposition: Home Primary Insurance[facility] [employer] [employer] Discharge Planning Comments: CM met with patient at bedside after explaining CM role and obtaining verbal consent. Patient lives at home alone and plans to return there upon discharge. Patient feels this would be a safe discharge. Patient states that his friend Luna lives in [facility] in his yard. CM discussed availability / needs of home health and medical equipment. Patient denies any discharge needs at this time. Patient states he will have his friend drive him home upon discharge. CM will continue to follow and assist as needed with discharge planning / needs. Binder Stripper Machine: Jamilah Gotti DCPIA - Discharge Planning Initial Assessment Updated by [email or web address]: Jamilah Gotti on 04/06/19 4:47 pm * Is the patient Alert and Oriented? Yes * How many steps to enter\exit or inside your home? * PCP DR. PALACIOS * [facility]acy [facility] * Preadmission Environment Home Alone * ADLs Independent * Equipment Cane * List name and contact numbers for known caregivers / representatives who currently or will assist patient after discharge: LUNA SRINIVASAN- [place] - [phone] * Verbal permission to speak to the caregivers and representatives has been obtained from the patient. N/A * Community resources currently utilized None * Additional services required to return to the preadmission environment? No * Can the patient safely return to the preadmission environment? Yes * Has this patient been hospitalized within the prior 30 days at any hospital? No Last DP export: 04/06/19 3:59 p Patient Name: KEVIN VELAZQUEZ Page 22072 at 0938 All edits/amendments must be made on the electronic document DICTATION DATE: 04/11/19936 TRADE MANAGER: DM 04/11/19936 RPT#: [id number] DC DATE:04/09/19 STATUS: DIS IN [facility] [address] [place] [address] END OF REPORT
== END 2019-04-09 14:30 | disposition home or self-care (01) | DRG 236 ==
LOC: D.CVICU 04-04 05:00 → D.SDCHOLD 04-04 05:00 → D.CVICU 04-04 10:30
PROVIDERS: ADMIT Thoracic Surgery (Cardiothoracic Vascular Surgery); ATTEND Thoracic Surgery (Cardiothoracic Vascular Surgery)
PROC: 02100AW Bypass Coronary Artery, One Artery from Aorta with Autologous Arterial Tissue, Open Approach (ICD-10-PCS; 2019-04-04)
PROC: 021109W Bypass Coronary Artery, Two Arteries from Aorta with Autologous Venous Tissue, Open Approach (ICD-10-PCS; 2019-04-04)
PROC: 03BC0ZZ Excision of Left Radial Artery, Open Approach (ICD-10-PCS; 2019-04-04)
PROC: 5A1221Z Performance of Cardiac Output, Continuous (ICD-10-PCS; 2019-04-04)
PROC: B24BZZ4 Ultrasonography of Heart with Aorta, Transesophageal (ICD-10-PCS; 2019-04-04)
PROC: 02100Z9 Bypass Coronary Artery, One Artery from Left Internal Mammary, Open Approach (ICD-10-PCS; principal; 2019-04-04 07:30)
DX: I25.118 Atherosclerotic heart disease of native coronary artery with other forms of angina pectoris (principal); I51.5 Myocardial degeneration; E11.9 Type 2 diabetes mellitus without complications; I10 Essential (primary) hypertension; F17.200 Nicotine dependence, unspecified, uncomplicated; K21.9 Gastro-esophageal reflux disease without esophagitis; E66.9 Obesity, unspecified; E78.5 Hyperlipidemia, unspecified

== ENCOUNTER → 2019-05-11 08:54 | Outpatient (CLI) | payer MEDICAID ==
[2019-04-05 12:35] VITALS: BMI 35.2
[~2019-05-11 08:54] MED LIST changes: +ACETAMINOPHEN500 M1 PO; +AMIODARONE HCL200 MG PO; +BAYER CHEWABLE81 MG PO; +COLACE100 MG PO; +HEMOCYTE PLUS C1 CAP PO; +K-DUR20 MEQ PO; +LASIX40 MG PO; +LISINOPRIL2.5 MG PO; +LOPRESSOR25 MG PO; +PERCOCET 5-3251 TAB PO; +PLAVIX75 MG PO; +PROCARDIA10 MG PO
[2019-05-11 09:29] LABS: HEMATOCRIT 38.5 % (42.0-54.0); HEMOGLOBIN 12.5 g/dL (13.5-17.5); MCH 29.5 pg (26.0-34.0); MCHC 32.5 g/dL (31.0-37.0); MCV 90.8 fL (80.0-100.0); MEAN PLATELET VOLUME 10.3 fL (7.4-10.4); RBC 4.24 10x6/uL (4.20-6.10); RDW 14.1 % (11.5-14.5); WBC 6.4 10x3/uL (4.8-10.8)
[2019-05-11 09:42] LABS: ALBUMIN 3.6 g/dL (3.4-5.0); ANION GAP 16.3 mmol/L (8-16); BILIRUBIN - TOTAL 0.32 mg/dL (0.2-1.3); CALCIUM 8.5 mg/dL (8.5-10.1); CARBON DIOXIDE 24.2 mmol/L (21.0-32.0); CREATININE - SERUM 1.5 mg/dL (0.6-1.3); POTASSIUM - SERUM 4.5 mmol/L (3.5-5.1); PROTEIN - SERUM 7.2 g/dL (6.4-8.2)
== END | disposition home or self-care (01) ==
LOC: D.LAB 08:54
PROVIDERS: ATTEND Thoracic Surgery (Cardiothoracic Vascular Surgery)
DX: J91.8 Pleural effusion in other conditions classified elsewhere (principal); D64.9 Anemia, unspecified

== ENCOUNTER → 2019-08-25 17:38 | Outpatient (CLI) | payer MEDICAID ==
[2019-04-05 12:35] VITALS: BMI 35.2
[2019-08-25 18:53] LABS: CHOL - HDL RATIO 4.5 ratio (2.3-4.9); LDL-HDL RATIO 2.4 ratio (1.5-3.5)
== END | disposition home or self-care (01) ==
LOC: D.LABREF 17:38
PROVIDERS: ATTEND Internal Medicine Cardiovascular Disease
DX: I25.10 Atherosclerotic heart disease of native coronary artery without angina pectoris (principal)

== ENCOUNTER → 2020-07-09 07:45 | Outpatient (CLI) | payer MEDICARE, MEDICAID ==
[2019-04-05 12:35] VITALS: BMI 35.2
== END | disposition home or self-care (01) ==
LOC: D.HCCECHO 07:45
PROVIDERS: ATTEND Internal Medicine Cardiovascular Disease
DX: I25.10 Atherosclerotic heart disease of native coronary artery without angina pectoris (principal)